=== PATIENT | female | born 1960 | race Caucasian/White ===

== ENCOUNTER 2018-09-24 05:55 | Day surgery (SDC) | payer OTHER ==
[2018-09-22 15:04] LABS: BASOPHILS # (AUTO) 0.1 K/uL (0.0-0.2); EOSINOPHILS # (AUTO) 0.1 K/uL (0.0-0.4); EOSINOPHILS % (AUTO) 1.5 % (0.0-4.0); HEMATOCRIT 35.6 % (36-48); HEMOGLOBIN 12.3 g/dL (12.0-16.0); LYMPHOCYTES # (AUTO) 3.2 K/uL (1.0-5.5); LYMPHOCYTES % (AUTO) 43.1 % (20.5-51.5); MEAN CORPUSCULAR HEMOGLOBIN 35 pg (27-31); MEAN CORPUSCULAR HGB CONC 35 % (32-36); MEAN CORPUSCULAR VOLUME 100 fL (79.0-98.0); MONOCYTES # (AUTO) 0.6 K/uL (0.0-1.0); MONOCYTES % (AUTO) 7.4 % (1.7-9.3); NEUTROPHILS # (AUTO) 3.5 K/uL (1.8-7.7); PLATELET COUNT (AUTO) 451 K/uL (130-430); RED BLOOD CELL COUNT(AUTO) 3.55 MIL/uL (4.2-6.2); RED CELL DISTRIBUTION WIDTH 13.9 % (9.0-15.0); WHITE BLOOD COUNT (AUTO) 7.5 K/uL (4.8-10.8)
[2018-09-22 15:26] LABS: BILIRUBIN,URINE NEGATIVE (NEGATIVE); BLOOD, URINE NEGATIVE (NEGATIVE); CLARITY/URINE CLEAR (CLEAR); COLOR,URINE YELLOW (YELLOW); GLUCOSE,URINE NEGATIVE (NEGATIVE); KETONES,URINE NEGATIVE (NEGATIVE); LEUKOCYTE ESTERASE ,URINE NEGATIVE (NEGATIVE); NITRITE, URINE NEGATIVE (NEGATIVE); PROTEIN URINE NEGATIVE (NEGATIVE); UROBILINOGEN,URINE 0.2 (0.2-1.0)
[~2018-09-24] VITALS: Ht 157.5 cm; Wt 72.6 kg
[2018-09-24] MEDS ORDERED: DEXAMETHASONE SOD PHOSPHATE 4 MG/ML VIAL IVP ONE (07:15)
[2018-09-24] MEDS ORDERED: SEVOFLURANE 15 MIN GAS INH ONE (07:15)
[2018-09-24] MEDS ORDERED: CLINDAMYCIN 2% VAGINAL CREAM VG ONE (07:15)
[2018-09-24] MEDS ORDERED: PROPOFOL 200MG/ 20ML VIAL (DIPRIVAN) IV ONE (07:15)
[2018-09-24] MEDS ORDERED: KETOROLAC TROMETHAMINE 30 MG VIAL IVP ONE ×2 (07:15→12:00)
[2018-09-24] MEDS ORDERED: NS IRRIG SOLN 1000 ML IR ONE (07:15)
[2018-09-24] MEDS ORDERED: LR 1,000 ML IV.SOLN IV ONE (07:15)
[2018-09-24] MEDS ORDERED: WATER FOR IRRIGATION,STERILE 1,000 ML IRRIG.SOLN IR ONE (07:15)
[2018-09-24] MEDS ORDERED: MIDAZOLAM HCL 5 MG/5 ML VIAL IVP ONE (07:15)
[2018-09-24] MEDS ORDERED: METOCLOPRAMIDE HCL 10 MG/2 ML VIAL IVP ONE (07:15)
[2018-09-24] MEDS ORDERED: fentaNYL CITRATE 250 MCG/5 ML AMP IV ONE (07:15)
[2018-09-24] MEDS ORDERED: ROCURONIUM BROMIDE 10 MG/ML (ZEMURON) IV ONE (07:15)
[2018-09-24] MEDS ORDERED: CLINDAMYCIN PHOSPHATE 900 mg/50mL D5W IV ONE (07:15)
[2018-09-24] MEDS ORDERED: LR 1,000 ML IV SCH (08:36)
[2018-09-24] MEDS ORDERED: HYDROmorphone 1 MG INJ. 1 MG/ML AMPUL IVP PRN (08:45)
[2018-09-24] MEDS ORDERED: HYDROmorphone 2 MG/ML VIAL IVP PRN ×2 (08:45)
[2018-09-24] MEDS ORDERED: MEPERIDINE HCL/PF 25 MG/ML DISP.SYRIN IVP PRN (08:45)
[2018-09-24] MEDS ORDERED: HYDROcodone/ACETAMIN 5-325 MG TAB (NORCO/ VICODIN) PO PRN (09:15)
[2018-09-24] MEDS ORDERED: OXYCODONE/ACETAMINOPHEN 5-325 TABLET PO PRN (09:15)
[2018-09-24] MEDS ORDERED: ONDANSETRON HCL 4 MG/2 ML VIAL IVP PRN (09:15)
[2018-09-24] MEDS: OXYCODONE/ACETAMINOPHEN 5-325 TABLET PO PRN ×2 (10:44→16:10)
[2018-09-24] MEDS ORDERED: OXYCODONE/ACETAMINOPHEN 5-325 TABLET ONE ×2 (10:52→16:00)
[2018-09-24 12:00] VITALS: BP_SYST 107
== END 2018-09-24 16:30 | disposition home or self-care (01) ==
LOC: SDS 05:55 → SMU 05:55 → SDS 16:30
PROVIDERS: ATTEND Specialist
DX: N81.10 Cystocele, unspecified (principal); N81.6 Rectocele; N39.46 Mixed incontinence; N94.12 Deep dyspareunia; N95.2 Postmenopausal atrophic vaginitis; N81.11 Cystocele, midline; E66.9 Obesity, unspecified; Z88.0 Allergy status to penicillin; Z88.5 Allergy status to narcotic agent; R00.0 Tachycardia, unspecified; Z90.710 Acquired absence of both cervix and uterus; Z98.890 Other specified postprocedural states; Z68.30 Body mass index [BMI] 30.0-30.9, adult; Z88.8 Allergy status to other drugs, medicaments and biological substances
CPT/HCPCS: 36415; 57260; 71046; 81003; 85025; 88305; 93005; J7120; J1100; J1885; J2250; J2704; J2765; J3010; J3490

== ENCOUNTER 2018-09-25 04:20 | Emergency (ER) | payer OTHER ==
[~2018-09-25] VITALS: Ht 157.5 cm; Wt 74.8 kg
[2018-09-25 04:20] VITALS: BP_SYST 134
--- NOTE | 2018-09-25 04:30 | NUR ---
Patient to ER bed 7 to gown for evaluation. Side rails up.
--- NOTE | 2018-09-25 04:41 | NUR ---
ER at bedside examining patient.
--- NOTE | 2018-09-25 04:45 | NUR ---
Pt came to the ED post gynecological surgery by Dr. Esquivel. Pt reported to have left recovery without sawyer catheter. Dr. Esquivel called ER and requested and indwelling sawyer catheter to be placed and to follow up with Dr. Esquivel.
--- NOTE | 2018-09-25 04:50 | NUR ---
# 16 FR Schaeffer catheter with use of sterile technique. Immediate return of 200 cc yellow urine noted. Bedside drainage bag placed below level of bladder. Pt tolerated procedure well. Post-surgery patient unable to void.
[2018-09-25] MEDS: OXYCODONE/ACETAMINOPHEN *10*mg/325 mg TABLET PO ONE (05:03)
--- NOTE | 2018-09-25 05:40 | NUR ---
Pt resting comfortably in bed, speaking to charge nurse. Will cont. to monitor.
[2018-09-25] MEDS: KETOROLAC TROMETHAMINE 30 MG VIAL IM ONE (06:23)
[2018-09-25 06:46] VITALS: BP_SYST 134
--- NOTE | 2018-09-25 06:46 | NUR ---
Patient given written and verbal discharge instructions and verbalizes understanding. ER MD Dr. Rhoades discussed with patient the results and treatment provided. Patient in stable condition. ID arm band removed. Patient educated on pain management and to follow up with PMD. Pain Scale 2/10, tolerable for pt. Pt states pain went down and it's getting better. Opportunity for questions provided and answered. Medication side effect fact sheet provided.
== END 2018-09-25 06:46 | disposition home or self-care (01) ==
LOC: SED 04:20
DX: R33.9 Retention of urine, unspecified (principal); Z88.0 Allergy status to penicillin; Z88.5 Allergy status to narcotic agent
CPT/HCPCS: 51702; 96372; 99284; J1885

== ENCOUNTER 2022-06-14 15:39 | Outpatient (CLI) | payer OTHER | END 2022-06-14 20:51 | disposition home or self-care (01) | LOC: SLB 15:39 → SRD 20:51 | DX: R05.9 Cough, unspecified (principal) | CPT/HCPCS: 71046-TC ==